=== PATIENT | male | born 1975 | race Two or more races ===

== ENCOUNTER → 2017-05-15 | Outpatient (REF) | payer OTHER | LOC: M LAB REF 13:58 | PROVIDERS: ATTEND Internal Medicine Medical Oncology | DX: C81.90 Hodgkin lymphoma, unspecified, unspecified site (principal) ==

== ENCOUNTER → 2017-05-28 | Outpatient (CLI) | payer OTHER ==
--- NOTE | 2017-05-29 16:55 | REP ---
PET/CT: History: Neck cellularity Hodgkin's lymphoma. Restaging. The patient status post chemotherapy May 2016 through July 2016. Dry cough chest pain and fatigue. Comparisons: No comparison imaging is available. Patient has a history of prior PET/CT study from [facility]. Attempts are being made to retrieve the use. There is a report of a CT study of the chest, abdomen and pelvis from another facility dated March 03, 2017 describing no evidence of disease recurrence. No new adenopathy. A report is available from a prior FDG PET/CT 06/25/2016 reporting interval resolution of previously seen diffuse mediastinal lymphadenopathy. TECHNIQUE: 47 minutes following the intravenous injection of a 10.6 mCi dose of F-18 FDG, three-dimensional PET scintigraphy is acquired from the skull base to the proximal thighs. Triplanar noncontrast CT scanning is acquired through the same anatomic range for attenuation correction, and image registration with scan parameters optimized to minimize radiation exposure to the patient. PET scintigraphy and CT datasets were fused and displayed on a workstation with multiplanar and projection display capability. PET/CT Findings: Head and neck soft tissues are unremarkable. There is no abnormal hypermetabolic uptake within the chest. No hilar or mediastinal mass or adenopathy is observed. No abnormal FDG accumulation. In the abdomen and pelvis there is normal hepatic, splenic, gastrointestinal, and genitourinary FDG accumulation. No abnormal abdominal or pelvic uptake is seen. Impression: Negative PET CT study. Signed by Andrade Mo MD 05/30/2017 10:13 A
== END ==
LOC: M PLARAD 13:45
PROVIDERS: ATTEND Internal Medicine Medical Oncology
DX: C81.90 Hodgkin lymphoma, unspecified, unspecified site (principal)
CPT/HCPCS: 78815; A9552

== ENCOUNTER 2017-07-23 20:53 | Emergency (ER) | payer OTHER ==
[2017-07-23 21:46] LABS: BASO % 0.3 % (0.0-1.0); EOS # 0.1 10^3/uL (0.0-0.50); IMMATURE GRANULOCYTE % 0.2 % (0-3.0); LYMPH % 30.8 % (24.0-44.0); MEAN CORPUSCULAR HEMOGLOBIN 29.5 pg (27.0-33.0); MEAN CORPUSCULAR HGB CONC 34.9 g/dl (32.0-36.5); MEAN CORPUSCULAR VOLUME 84.6 fl (80.0-96.0); MONO # 0.5 10^3/uL (0.0-0.8); MONO % 6.9 % (0.0-5.0); NEUTROPHILS % 59.8 % (36.0-66.0); PLATELET COUNT, AUTOMATED 180 10^3/uL (150-450); RED BLOOD COUNT 5.08 10^6/uL (4.30-6.10); RED CELL DISTRIBUTION WIDTH 13.1 % (11.5-14.5); WHITE BLOOD COUNT 6.6 10^3/uL (4.0-10.0)
[2017-07-23 21:54] LABS: ANION GAP 6 MEQ/L (8-16); BLOOD UREA NITROGEN 14 MG/DL (7-18); CALCIUM LEVEL 8.4 MG/DL (8.5-10.1); CARBON DIOXIDE LEVEL 29 MEQ/L (21-32); CHLORIDE LEVEL 106 MEQ/L (98-107); CK-MB VALUE MASS 5.1 NG/ML (0.0-3.6); CPK CREATINE PHOSPHOKINASE 468 U/L (39-308); CREATININE FOR GFR 1.26 MG/DL (0.70-1.30); GLOMERULAR FILTRATION RATE > 60.0 (>60); GLUCOSE, FASTING 111 MG/DL (70-100); MB/CK RELATIVE INDEX 1.08 (< OR =4); POTASSIUM SERUM 3.7 MEQ/L (3.5-5.1); SODIUM LEVEL 141 MEQ/L (136-145); TROPONIN I < 0.02 NG/ML (< 0.10)
[2017-07-23] MEDS: ASPIRIN 81 MG CHEW TABLET PO (22:02)
[2017-07-23] MEDS: NITROGLYCERIN 0.4 MG SUBL TABLET SL ×2 (22:02→22:45)
[2017-07-23 23:16] LABS: D-DIMER QUANT 281.7 ng/ml (<500)
[2017-07-24 00:57] LABS: CPK CREATINE PHOSPHOKINASE 363 U/L (39-308); TROPONIN I < 0.02 NG/ML (< 0.10)
[2017-07-24 00:58] LABS: CK-MB VALUE MASS 4.2 NG/ML (0.0-3.6); MB/CK RELATIVE INDEX 1.15 (< OR =4)
== END 2017-07-24 02:57 | disposition home or self-care (01) ==
LOC: M ED 07-24 02:57
DX: R07.89 Other chest pain (principal); I25.10 Atherosclerotic heart disease of native coronary artery without angina pectoris; C85.90 Non-Hodgkin lymphoma, unspecified, unspecified site; Z92.21 Personal history of antineoplastic chemotherapy; Z79.899 Other long term (current) drug therapy
CPT/HCPCS: 71046

== ENCOUNTER → 2017-08-04 | Outpatient (REF) | payer OTHER ==
[2017-08-04 14:26] LABS: C REACTIVE PROTEIN QUANTITATIV < 0.30 MG/DL (0.00-0.30)
[2017-08-04 14:54] LABS: ERYTHROCYTE SEDIMENTATION RATE 2 mm/hr (0-15)
== END ==
LOC: M LAB REF 13:29
DX: C81.90 Hodgkin lymphoma, unspecified, unspecified site (principal)

== ENCOUNTER → 2017-08-26 | Outpatient (CLI) | payer OTHER ==
[~2017-08-26] MED LIST: GASTROGRAFIN SOLUTION 30ML (Q9963) As Ordered; ISOVUE-370 76% 100ML VIAL (Q9967) As Ordered
== END ==
LOC: M RAD 12:05
DX: C81.90 Hodgkin lymphoma, unspecified, unspecified site (principal); R53.83 Other fatigue; R05 Cough

== ENCOUNTER → 2017-09-24 | Outpatient (CLI) | payer OTHER ==
[~2017-09-24] MED LIST changes: -GASTROGRAFIN SOLUTION 30ML (Q9963) As Ordered; -ISOVUE-370 76% 100ML VIAL (Q9967) As Ordered; +METHACHOLINE KIT (J7674) INH
== END ==
LOC: M CARPUL 10:11
DX: R05 Cough (principal)
CPT/HCPCS: J7674

== ENCOUNTER → 2017-12-04 | Outpatient (REF) | payer OTHER ==
[2017-12-04 13:47] LABS: C REACTIVE PROTEIN QUANTITATIV < 0.30 MG/DL (0.00-0.30)
[2017-12-04 14:14] LABS: ERYTHROCYTE SEDIMENTATION RATE 2 mm/hr (0-15)
== END ==
LOC: M LAB REF 13:23
DX: Z00.00 Encounter for general adult medical examination without abnormal findings (principal)

== ENCOUNTER 2017-12-15 08:16 | Day surgery (SDC) | payer OTHER ==
[2017-12-15] MEDS ORDERED: PROPOFOL 200 MG/20 ML VIAL As Ordered ×2 (08:32)
[2017-12-15] MEDS ORDERED: fentaNYL 250 MCG/5 ML INJECTION (J3010) As Ordered ×2 (08:32)
[2017-12-15] MEDS ORDERED: MIDAZOLAM INJ 2 MG/2 ML VIAL (J2250) As Ordered ×2 (08:32)
[2017-12-15] MEDS ORDERED: ROCURONIUM BROMIDE 50 MG/5 ML VIAL As Ordered ×2 (08:32)
[2017-12-15] MEDS ORDERED: LIDOCAINE 2% INJ 100 MG/5 ML SDV (FOR ANES.) As Ordered ×2 (08:32)
[2017-12-15] MEDS: METHYLENE BLUE 0.5% (5MG/ML) 10 ML AMP (PROVAYBLUE)(Q9968 PER 1MG) As Ordered ×2 (09:48)
[2017-12-15] MEDS: OXYMETAZOLINE NASAL SPRAY (AFRIN) As Ordered ×2 (09:48)
[2017-12-15] MEDS: LIDOCAINE W/EPINEPHRINE 1% 20ML VIAL As Ordered ×2 (09:48)
[2017-12-15] MEDS ORDERED: ONDANSETRON 4MG/2ML VIAL (J2405) As Ordered ×2 (09:56)
[2017-12-15] MEDS ORDERED: METOCLOPRAMIDE INJ 10MG/2ML VIAL (J2765) As Ordered ×2 (09:56)
[2017-12-15] MEDS ORDERED: GLYCOPYRROLATE INJ 0.2 MG/ML 2 ML VIAL As Ordered ×2 (09:57)
[2017-12-15] MEDS ORDERED: dexameTHASONE 4 MG/ML 1ML VIAL (J1100) As Ordered ×4 (09:57)
[2017-12-15] MEDS ORDERED: KETOROLAC 60 MG/2 ML VIAL (J1885) As Ordered ×2 (09:57)
[2017-12-15] MEDS ORDERED: NEOSTIGMINE 10 MG/10 ML VIAL (J2710) As Ordered ×2 (09:57)
[2017-12-15] MEDS ORDERED: fentaNYL 100 MCG/2 ML INJECTION (J3010) IV ×2 (11:00)
[2017-12-15] MEDS ORDERED: HYDROMORPHONE HCL 0.5 MG/ 0.5 ML SYRINGE (J1170 PER 1) IV ×2 (11:00)
[2017-12-15] MEDS ORDERED: PERCOCET 5MG/325MG TAB PO ×4 (11:00)
[2017-12-15] MEDS ORDERED: ONDANSETRON 4MG/2ML VIAL (J2405) IV ×2 (11:00)
[2017-12-15] MEDS ORDERED: LR 1,000 ML IV ×4 (11:00→11:45)
[2017-12-15] MEDS ORDERED: IBUPROFEN 800 MG TAB PO ×2 (11:00)
== END 2017-12-15 12:35 | disposition home or self-care (01) ==
LOC: M SDC 08:16
DX: J34.2 Deviated nasal septum (principal); J34.3 Hypertrophy of nasal turbinates; G47.30 Sleep apnea, unspecified; E11.9 Type 2 diabetes mellitus without complications; Z79.899 Other long term (current) drug therapy; E03.9 Hypothyroidism, unspecified
CPT/HCPCS: 30520

== ENCOUNTER → 2018-04-15 | Outpatient (CLI) | payer OTHER ==
[~2018-04-15] MED LIST changes: +GASTROGRAFIN SOLUTION 30ML (Q9963) As Ordered; +ISOVUE-370 76% 100ML VIAL (Q9967) As Ordered; -METHACHOLINE KIT (J7674) INH
== END ==
LOC: M RAD 13:35
DX: R06.02 Shortness of breath (principal); Z85.79 Personal history of other malignant neoplasms of lymphoid, hematopoietic and related tissues; R07.1 Chest pain on breathing; R10.32 Left lower quadrant pain; K57.30 Diverticulosis of large intestine without perforation or abscess without bleeding
CPT/HCPCS: Q9963

== ENCOUNTER → 2018-04-29 | Outpatient (CLI) | payer OTHER | LOC: M RAD 13:16 | DX: R59.0 Localized enlarged lymph nodes (principal); L72.3 Sebaceous cyst; Z85.79 Personal history of other malignant neoplasms of lymphoid, hematopoietic and related tissues | CPT/HCPCS: 76857 ==

== ENCOUNTER → 2018-08-04 | Outpatient (CLI) | payer OTHER ==
[~2018-08-04] MED LIST changes: +CLAR1TAB2 PO; +FLON1SPR; -GASTROGRAFIN SOLUTION 30ML (Q9963) As Ordered; +GASTROGRAFIN SOLUTION 30ML (Q9963) As Ordered ONE; -ISOVUE-370 76% 100ML VIAL (Q9967) As Ordered; +ISOVUE-370 76% 100ML VIAL (Q9967) As Ordered ONE; +LEVO112T2 PO; +LEVO25TA5 PO; +MULT1TAB18 PO; +PRED20TA PO; +VITA200015 PO; +[UNRECOGNIZED DRUG - CODE] PO
--- NOTE | 2018-08-04 11:50 | REP ---
Soft-tissue neck CT study with IV contrast: Tree: Restaging Hodgkin's lymphoma. Comparison soft-tissue neck CT study is from March 03, 2017. CT contrast dose: 100 ml of intravenous Isovue 370. CT findings: Submandibular and parotid glands are normal and symmetric. There is no evidence of suprahyoid or infrahyoid adenopathy. Scattered normal-sized anterior and posterior cervical lymph nodes are seen. Thyroid lobes are normal and homogeneous. The lung apices are clear. No intraspinal disease is appreciated. No bony destructive lesion is appreciated. The paranasal sinuses are essentially clear. Mild mucosal thickening is seen in the left maxillary sinus inferiorly. Impression: There is no evidence of neck mass or adenopathy. Electronically Signed by Andrade Mo MD 08/04/2018 02:42 P
--- NOTE | 2018-08-06 16:18 | REP ---
Clinical: Hodgkin's lymphoma for restaging. Technique: Axial contrast enhanced images from the thoracic inlet to the upper abdomen with coronal and sagittal re-formations using 100 ml Isovue 370 intravenous contrast material. Comparison: 04/15/2018. Findings: The bilateral lung newman are symmetric and well-aerated. No consolidation, nodule or mass lesion. No pleural effusion. No pneumothorax. Tracheobronchial tree is patent. No mediastinal, axillary, or hilar adenopathy appreciated. The mediastinum demonstrates normal thoracic aorta, pulmonary vasculature and heart/pericardium. No pericardial effusion. Limited upper abdomen demonstrates normal bilateral adrenal glands. Hepatic steatosis noted without focal hepatic lesion. Impression: No acute mediastinal or pleuroparenchymal process. No adenopathy. Hepatic steatosis Electronically Signed by Corby Tabares MD 08/06/2018 04:10 P
--- NOTE | 2018-08-06 16:27 | REP ---
Clinical: Hodgkin's lymphoma for restaging. Technique: Axial contrast enhanced images from the lung bases to the pubic symphysis using oral (per protocol) and 100 ml Isovue 370 intravenous contrast material with delayed images of the abdomen as well as coronal and sagittal re-formations. Comparison: 04/15/2018. Findings: Lung bases are clear. Diffuse hepatic steatosis is appreciated along with subcentimeter hypodensity in the right lobe which remains stable. No focal hepatic lesion otherwise noted. Spleen is stable in appearance and size. Pancreas, gallbladder, bilateral adrenal glands and kidneys are normal. The enteric system is without obstruction or acute inflammatory process. Normal terminal ileum and cecum are identified in the right lower quadrant. Few scattered sigmoid diverticula noted without acute diverticulitis. Pelvis demonstrates collapsed normal bladder and age appropriate prostate/seminal vesicles. No ascites. No free air. No adenopathy. No focal mass lesion. Abdominal aorta without aneurysm or dissection. Musculoskeletal structures without focal osseous abnormality. Impression: No acute abdominopelvic pathology appreciated. Specifically, no adenopathy, focal mass lesion, or ascites. Electronically Signed by Corby Tabares MD 08/06/2018 04:18 P
== END ==
LOC: M RAD 08:23
PROVIDERS: ATTEND Nurse Practitioner Family
DX: C81.90 Hodgkin lymphoma, unspecified, unspecified site (principal)

== ENCOUNTER → 2018-08-11 | Outpatient (CLI) | payer OTHER ==
[~2018-08-11] MED LIST changes: +ALLE60TA69 PO; -GASTROGRAFIN SOLUTION 30ML (Q9963) As Ordered ONE; -ISOVUE-370 76% 100ML VIAL (Q9967) As Ordered ONE
--- NOTE | 2018-08-11 19:04 | REP ---
O body PET CT scan for restaging of Hodgkin's lymphoma: Comparison is 05/28/2017. For reasons unknown to this examiner the images from the prior study are not available on the imaging PET archive. However, the transcribed report states there are no hypermetabolic foci, negative PET CT study. On the study today whole-body scanning is performed from skull base to the upper thighs. Neck and supraclavicular is: There are no hypermetabolic foci. Chest: There are no hypermetabolic foci. Abdomen, pelvis and upper thighs: There are no hypermetabolic foci. Impression: Negative PET CT scan. There are no hypermetabolic foci. The study is performed with 8.2 mCi of F 18 FDG. Electronically Signed by Michael Becker MD 08/11/2018 06:55 P
== END ==
LOC: M PLARAD 07:50
PROVIDERS: ATTEND Nurse Practitioner Family
DX: C81.90 Hodgkin lymphoma, unspecified, unspecified site (principal)
CPT/HCPCS: 78815; A9552

== ENCOUNTER 2018-08-28 08:29 | Day surgery (SDC) | payer OTHER ==
[~2018-08-28] VITALS: Ht 180.3 cm; Wt 111.5 kg
[~2018-08-28 08:29] MED LIST changes: +NS 1,000 ML IV ONE
[2018-08-28] MEDS ORDERED: PROPOFOL 200 MG/20 ML VIAL As Ordered ONE ×2 (08:48→08:49)
[2018-08-28] MEDS ORDERED: LIDOCAINE 2% INJ 100 MG/5 ML SDV (FOR ANES.) As Ordered ONE (08:49)
--- NOTE | 2018-08-28 09:27 | ROOR ---
Patient Name: Alcides Patel Procedure Date: 08/28/2018 9:04 AM Date of : 1975 Age: 43 Room: [facility] Gender: Male Note Status: Finalized Procedure: Colonoscopy Indications: Abdominal pain in the left lower quadrant Providers: Jerson BARKSDALE MD Referring MD: PETE FREEMAN MD Requesting Provider: Medicines: Monitored Anesthesia Care Complications: No immediate complications. Procedure: Pre-Anesthesia Assessment: - The heart rate, respiratory rate, oxygen saturations, blood pressure, adequacy of pulmonary ventilation, and response to care were monitored throughout the procedure. The Colonoscope was introduced through the anus and advanced to the cecum, identified by appendiceal orifice and ileocecal valve. The colonoscopy was performed with difficulty due to inadequate bowel prep. The patient tolerated the procedure well. The quality of the bowel preparation was poor. Findings: The perianal and digital rectal examinations were normal. A 5 mm polyp was found in the hepatic flexure. The polyp was sessile. The polyp was removed with a cold snare. Resection and retrieval were complete. Mild sigmoid diverticulosis and small internal hemorrhoids. Impression: - Preparation of the colon was poor. (Inadequate visualisation) - One 5 mm polyp at the hepatic flexure, removed with a cold snare. Resected and retrieved. - Mild to moderate sigmoid diverticulosis and small internal hemorrhoids. Recommendation: - Your abdominal pain may be related to constipation/fecal impaction. I recommend you start a laxative regimen. - Miralax 1 capful (17 grams) in 8 ounces of water PO BID. - Repeat colonoscopy at the next available appointment because the bowel preparation was poor. - My office will call you within the next few days to reschedule a colonoscopy with alternate colon preparation. Jerson Barksdale MD Jerson BARKSDALE MD 08/28/2018 9:27:22 AM Electronically signed by Jerson BARKSDALE MD Number of Addenda: 0 Note Initiated On: 08/28/2018 9:04 AM Estimated Blood Loss: Estimated blood loss: none.
[2018-08-28 09:51] VITALS: BP 157/94
== END 2018-08-28 10:02 | disposition home or self-care (01) ==
LOC: M OPP 08:29
PROVIDERS: ATTEND Internal Medicine Gastroenterology
DX: D12.3 Benign neoplasm of transverse colon (principal); K57.30 Diverticulosis of large intestine without perforation or abscess without bleeding; K64.8 Other hemorrhoids; G47.30 Sleep apnea, unspecified; Z79.899 Other long term (current) drug therapy; Z87.891 Personal history of nicotine dependence

== ENCOUNTER → 2018-09-02 | Outpatient (CLI) | payer OTHER ==
[~2018-09-02] MED LIST changes: -NS 1,000 ML IV ONE
--- NOTE | 2018-09-02 09:41 | REP ---
MAXILLOFACIAL CT WITHOUT CONTRAST: HISTORY: CONGESTION. The left frontal sinus is hypoplastic. Minimal mucosal thickening is present in the maxillary sinuses. The remaining sinuses are clear. Mucosal thickening involves the right osteomeatal unit. The left osteomeatal unit is patent. The middle and inferior nasal turbinates are partially paradoxical. There is david bullosa of the left middle turbinate. There is minimal deviation of the nasal septum to the right. The cribriform plate, medial denton of the orbits and optic canals are intact. The carotid canals form a segment of the posterolateral denton of the sphenoid sinus. IMPRESSION:Sinus mucosal thickening as described above. Electronically Signed by Brendon Schulz MD 09/02/2018 09:46 A
== END ==
LOC: M RAD 08:56
PROVIDERS: ATTEND Internal Medicine
DX: J32.8 Other chronic sinusitis (principal)

== ENCOUNTER 2018-11-16 07:07 | Day surgery (SDC) | payer OTHER ==
[~2018-11-16] VITALS: Ht 175.3 cm; Wt 110.7 kg
[~2018-11-16 07:07] MED LIST changes: +NS 1,000 ML IV ONE
[2018-11-16] MEDS ORDERED: LIDOCAINE 2% INJ 100 MG/5 ML SDV (FOR ANES.) As Ordered ONE (08:12)
[2018-11-16] MEDS ORDERED: PROPOFOL 500 MG/50 ML VIAL As Ordered ONE (08:12)
--- NOTE | 2018-11-16 08:31 | ROOR ---
Patient Name: Alcides Patel Procedure Date: 11/16/2018 8:02 AM Date of : 1975 Age: 43 Room: [facility] Gender: Male Note Status: Finalized Procedure: Colonoscopy Indications: Generalized abdominal pain, Constipation (repeat procedure with additional colon prep) Providers: Jerson BARKSDALE MD Referring MD: PETE FREEMAN MD Requesting Provider: Medicines: Monitored Anesthesia Care Complications: No immediate complications. Procedure: Pre-Anesthesia Assessment: - The heart rate, respiratory rate, oxygen saturations, blood pressure, adequacy of pulmonary ventilation, and response to care were monitored throughout the procedure. The Colonoscope was introduced through the anus and advanced to 10 cm into the ileum. The colonoscopy was performed without difficulty. The patient tolerated the procedure well. The quality of the bowel preparation was good. Findings: The perianal and digital rectal examinations were normal. (EXAM: Complete, PREP:Adequate) Two sessile polyps were found in the sigmoid colon. The polyps were diminutive in size. These polyps were removed with a cold snare. Resection and retrieval were complete. Mild sigmoid diverticulosis and small internal hemorrhoids. The terminal ileum appeared normal. Impression: - (EXAM: Complete, PREP:Adequate) - Two diminutive polyps in the sigmoid colon, removed with a cold snare. Resected and retrieved. - Mild sigmoid diverticulosis and small internal hemorrhoids. - Otherwise normal to terminal ileum. Recommendation: - Continue present medications. - Telephone endoscopist for pathology results in 2 weeks. - If the pathology report reveals adenomatous tissue, then repeat the colonoscopy for surveillance in 5 years. Jerson Barksdale MD Jerson BARKSDALE MD 11/16/2018 8:31:02 AM Electronically signed by Jerson BARKSDALE MD Number of Addenda: 0 Note Initiated On: 11/16/2018 8:02 AM Estimated Blood Loss: Estimated blood loss: none.
[2018-11-16 08:56] VITALS: BP 130/82
== END 2018-11-16 08:59 | disposition home or self-care (01) ==
LOC: M OPP 07:07
PROVIDERS: ATTEND Internal Medicine Gastroenterology
DX: D12.5 Benign neoplasm of sigmoid colon (principal); K64.8 Other hemorrhoids; K57.30 Diverticulosis of large intestine without perforation or abscess without bleeding; Z79.899 Other long term (current) drug therapy; R10.84 Generalized abdominal pain

== ENCOUNTER → 2019-07-09 | Outpatient (REF) | payer OTHER ==
[~2019-07-09] MED LIST changes: -NS 1,000 ML IV ONE
[2019-07-09 14:33] LABS: HEMOGLOBIN A1c 6.8 %
[2019-07-09 14:51] LABS: FOLATE > 24.0 NG/ML; FREE T4 1.46 NG/DL (0.76-1.46); RHEUMATOID FACTOR QUANT < 10.0 IU/ML (<15.0); VITAMIN B12 LEVEL 458 PG/ML
== END ==
LOC: M LABNEURO 08:59
PROVIDERS: ATTEND Psychiatry & Neurology Neurology
DX: G62.9 Polyneuropathy, unspecified (principal)

== ENCOUNTER → 2019-09-13 | Outpatient (CLI) | payer OTHER ==
[~2019-09-13] MED LIST changes: +GASTROGRAFIN SOLUTION 30ML (Q9963) As Ordered ONE; +ISOVUE-370 76% 100ML VIAL (Q9967) As Ordered ONE
--- NOTE | 2019-09-14 05:16 | REP ---
Clinical: History of Hodgkin's lymphoma. Technique: Axial contrast enhanced images from the thoracic inlet to the upper abdomen followed by CT of the abdomen and pelvis with coronal and sagittal re-formations using 100 ml Isovue 370 intravenous contrast material. Findings: No axillary, hilar, or mediastinal adenopathy is appreciated. The mediastinum demonstrates normal thoracic aorta, pulmonary vasculature, and heart/pericardium. Tracheobronchial tree is patent. The bilateral lung newman are well-aerated and clear. No consolidation, significant nodule, or mass lesion. No pleural effusion. No pneumothorax. Surrounding musculoskeletal structures are intact without focal aggressive abnormality noted. Impression: No acute mediastinal or pleuroparenchymal process. No adenopathy. Electronically Signed by Corby Tabares MD 09/14/2019 05:08 A
--- NOTE | 2019-09-14 05:21 | REP ---
Clinical: History of Hodgkin's lymphoma. Technique: Axial contrast enhanced images from the lung bases to the pubic symphysis using oral (per protocol) and 100 ml Isovue 370 intravenous contrast material coronal and sagittal re-formations. Delayed images of the abdomen obtained. Findings: Diffuse enlargement and fatty infiltration to the liver noted without focal hepatic lesion. Spleen is mildly enlarged without focal splenic lesion noted. Pancreas, gallbladder, bilateral adrenal glands and kidneys are normal. The enteric system is without obstruction or acute inflammatory process. Colonic and sigmoid diverticulosis noted without acute diverticulitis. Few scattered mesenteric lymph nodes are identified measuring up to 8 mm maximal diameter and nonspecific in appearance. No retroperitoneal adenopathy. Evaluation of the pelvis demonstrates normal bladder and mild prominent prostate gland. No ascites. No free air. Abdominal aorta and vasculature normal. Musculoskeletal structures intact and without focal aggressive abnormality noted. Impression: 1. Mild hepatosplenomegaly suggested along with hepatic steatosis. No focal hepatic or splenic lesion identified. 2. No adenopathy or ascites. 3. Diverticulosis without acute diverticulitis. Electronically Signed by Corby Tabares MD 09/14/2019 05:13 A
--- NOTE | 2019-09-14 08:21 | REPVR ---
PROCEDURE INFORMATION: Exam: CT Neck With Contrast Exam date and time: 09/13/2019 12:39 PM Age: 44 years old Clinical indication: Condition or disease; Other: Hodgkins; Additional info: Hodgkins granuloma involing lymph nodes TECHNIQUE: Imaging protocol: Computed tomography images of the neck with intravenous contrast. Radiation optimization: All CT scans at this facility use at least one of these dose optimization techniques: automated exposure control; mA and/or kV adjustment per patient size (includes targeted exams where dose is matched to clinical indication); or iterative reconstruction. Contrast material: ISOVUE 370; Contrast volume: 75 ml; Contrast route: IV; COMPARISON: CT Neck with contrast 08/04/2018 10:43 AM FINDINGS: Nasopharynx: Unremarkable. Oropharynx: There is a questionable mild increase in bilateral faucial tonsillar size on image 28 of series 201, when compared to the previous CT neck exam from 08/04/2018. Hypopharynx: Unremarkable. Larynx: Unremarkable. Normal epiglottis. Retropharyngeal space: Normal. No retropharyngeal abscess. Submandibular/Parotid glands: Normal. Glands are normal in size. Thyroid: Normal. No enlarged or calcified nodules. Lymph nodes: Unremarkable. No lymphadenopathy. Trachea: Visualized trachea is unremarkable. Lungs: Unremarkable as visualized. Bones/joints: Mild chronic degenerative discovertebral disease with mild loss of disc height and vertebral body endplate osteophytosis at levels C5-T1. No acute fracture. Soft tissues: No significant soft tissue abnormality. IMPRESSION: 1. There is a questionable mild increase in bilateral faucial tonsillar size on image 28 of series 201, when compared to the previous CT neck exam from 08/04/2018. The remainder of the neck shows no evidence of recurrent or residual Hodgkin's disease. 2. Mild chronic degenerative discovertebral disease with mild loss of disc height and vertebral body endplate osteophytosis, seen at levels C5-T1. Electronically signed by: David Solis On 09/14/2019 08:21:00 AM
== END ==
LOC: M RAD 11:00
PROVIDERS: ATTEND Internal Medicine Hematology & Oncology
DX: C81.72 Other Hodgkin lymphoma, intrathoracic lymph nodes (principal)
CPT/HCPCS: 70491; 71260; 74177; Q9963; Q9967